=== PATIENT | male | born 1945 | race Caucasian/White ===

== ENCOUNTER → 2016-12-03 | Outpatient (CLI) | payer MEDICARE ==
[~2016-12-03] MED LIST: ALPHAGAN *P* 0.15 ML OPHTH; AMOXICILLIN500 M1 PO; ASPIRIN325 MG PO; CATAPRES0.1 MG PO; COREG 3.1253.125 MG PO; COREG6.25 MG PO; COZAAR50 MG PO; DELTASONE20 MG PO; FINASTERIDE5 MG PO; GLUCOVANCE 5-51 EACH PO; LANCET DEVICE1 EACH; LIPITOR80 MG PO; NORVASC5 MG PO; NOVOLOG100 UNIT/M SUB-Q; PEN NEEDLE1 EAC1; PEPCID20 MG PO; PRINIVIL (ZESTRI5 MG PO; TEST STRIPS1 EACH; TRADJENTA5 MG PO; TYLENOL325 MG PO; [UNRECOGNIZED DRUG - SUPPLY]
== END | disposition disaster alternative care site (69) ==
LOC: LGSMG 09:42
DX: E11.22 Type 2 diabetes mellitus with diabetic chronic kidney disease (principal); N18.4 Chronic kidney disease, stage 4 (severe); D63.1 Anemia in chronic kidney disease; E78.5 Hyperlipidemia, unspecified; R80.9 Proteinuria, unspecified; Z79.899 Other long term (current) drug therapy

== ENCOUNTER → 2017-01-21 | Outpatient (CLI) | payer MEDICARE ==
[2017-01-21 11:34] LABS: HEMATOCRIT 34.4 % (37.0-53.0); HEMOGLOBIN 11.4 g/dL (11.0-16.0); MCH 29.2 pg (27.0-34.0); MCHC 33.1 gm/dL (32.0-36.5); MPV 11.4 fl (9.4-12.4); RBC 3.91 M/uL (3.50-5.50); RDW-CV 15.5 % (11.9-14.6); WBC 6.6 K/uL (4.0-11.0)
== END | disposition disaster alternative care site (69) ==
LOC: LGSMG 10:54
PROVIDERS: Internal Medicine Nephrology
DX: N18.9 Chronic kidney disease, unspecified (principal)

== ENCOUNTER → 2017-02-10 | Outpatient (CLI) | payer MEDICARE | LOC: LGSMG 11:55 | DX: Z00.00 Encounter for general adult medical examination without abnormal findings (principal); N18.4 Chronic kidney disease, stage 4 (severe); Z79.899 Other long term (current) drug therapy; E83.39 Other disorders of phosphorus metabolism; C85.90 Non-Hodgkin lymphoma, unspecified, unspecified site; R80.9 Proteinuria, unspecified; E11.9 Type 2 diabetes mellitus without complications ==